=== PATIENT | female | born 1950 | race Caucasian/White ===

== ENCOUNTER 2017-07-05 15:04 | Inpatient (IN) | payer OTHER ==
[~2017-07-05] VITALS: Ht 167.6 cm; Wt 98.0 kg
[2017-07-05] MEDS ORDERED: POLYMYXIN 500,000/BACIT.10,000 UNITS in NS IRR 1 L IR ONE (15:52)
[2017-07-05] MEDS ORDERED: CEFAZOLIN SOD 2 GM in D5W 50 ML IV ONE (16:15)
[2017-07-05] MEDS ORDERED: MIDAZOLAM HCL 5 MG/5 ML VIAL IVP ONE (17:00)
[2017-07-05] MEDS ORDERED: BUPIVACAINE /DEX PF 0.75% SPINAL 2 ML AMP INJ ONE (17:00)
[2017-07-05] MEDS ORDERED: LR 1,000 ML IV.SOLN IV ONE (17:00)
[2017-07-05] MEDS ORDERED: ROPIVACAINE HCL/PF 5 MG/ML 0.5% 30 ML VIAL INJ ONE (17:00)
[2017-07-05] MEDS ORDERED: ROPIVACAINE 0.2% 100 ML INJ SCH (17:49)
[2017-07-05] MEDS ORDERED: NALBUPHINE HCL 10 MG/ML AMP IVP PRN ×2 (18:00)
[2017-07-05] MEDS ORDERED: fentaNYL CITRATE/PF 100 MCG/2 ML AMP IVP PRN ×2 (18:00)
[2017-07-05] MEDS ORDERED: KETOROLAC TROMETHAMINE 60 MG/2 ML VIAL IM PRN (18:00)
[2017-07-05] MEDS ORDERED: OXYCODONE/ACETAMINOPHEN *10*mg/325 mg TABLET PO PRN (18:00)
[2017-07-05] MEDS ORDERED: DIPHENHYDRAMINE INJ 50 MG/ML VIAL IVP PRN ×2 (18:00)
[2017-07-05] MEDS ORDERED: NALOXONE HCL 0.4 MG/ML AMP (NARCAN) IVP PRN (18:00)
[2017-07-05] MEDS ORDERED: ONDANSETRON HCL 4 MG/2 ML VIAL IVP PRN ×2 (18:00)
[2017-07-05] MEDS ORDERED: HYDROcodone/ACETAMIN 5-325 MG TAB (NORCO/ VICODIN) PO PRN (19:30)
[2017-07-05] MEDS ORDERED: MORPHINE 2 MG/ML INJ. SYRINGE IVP PRN (19:30)
[2017-07-05] MEDS ORDERED: ROPIVACAINE 0.2% 550 ML INJ SCH (20:15)
[2017-07-05] MEDS ORDERED: MORPHINE 4 MG/ML INJ. SYRINGE IVP PRN (20:23)
[2017-07-05 20:40] VITALS: BP_SYST 143
[2017-07-05] MEDS: ONDANSETRON HCL 4 MG/2 ML VIAL IVP PRN (21:25)
[2017-07-05] MEDS: D5LR 1,000 ML IV SCH (21:26)
[2017-07-05] MEDS ORDERED: CEFAZOLIN 1 GM IVPB PREMIX 100 ML IV ONE (21:35)
[2017-07-05] MEDS: ASPIRIN 81 MG TABLET(ECOTRIN) PO SCH (22:12)
[2017-07-05] MEDS: ceFAZolin SODIUM 1 GM in D5W 50 ML IV SCH (22:13)
[2017-07-05 23:50] VITALS: BP_SYST 151
[2017-07-06] VITALS (7 sets, daily range): BP systolic 105–141
[2017-07-06] MEDS: ONDANSETRON HCL 4 MG/2 ML VIAL IVP PRN (03:57)
[2017-07-06] MEDS: ceFAZolin SODIUM 1 GM in D5W 50 ML IV SCH ×3 (05:07→22:43)
[2017-07-06] MEDS: D5LR 1,000 ML IV SCH ×2 (05:25→09:13)
[2017-07-06] MEDS: ASPIRIN 81 MG TABLET(ECOTRIN) PO SCH ×2 (09:13→22:43)
[2017-07-06] MEDS ORDERED: ALBUTEROL SULFATE 0.083% 2.5 MG/3 ML VIAL.NEB INH PRN (11:30)
[2017-07-06] MEDS ORDERED: IPRATROPIUM BROM 0.5 MG/2.5 ML VIAL.NEB (ATROVENT) INH PRN (11:30)
[2017-07-06] MEDS: NALOXONE HCL 0.4 MG/ML AMP (NARCAN) IVP PRN ×2 (11:48→11:56)
[2017-07-06] MEDS: ALBUTEROL SULFATE 0.083% 2.5 MG/3 ML VIAL.NEB INH SCH ×3 (15:03→23:30)
[2017-07-06] MEDS: IPRATROPIUM BROM 0.5 MG/2.5 ML VIAL.NEB (ATROVENT) INH SCH ×3 (15:03→23:30)
[2017-07-06 16:59] LABS: EOSINOPHILS % (AUTO) 0.2 % (0.0-4.0); HEMOGLOBIN 11.3 g/dL (12.0-16.0); LYMPHOCYTES # (AUTO) 1.8 K/uL (1.0-5.5); RED CELL DISTRIBUTION WIDTH 12.8 % (9.0-15.0)
[2017-07-06 17:02] LABS: BASOPHILS # (AUTO) 0.2 K/uL (0.0-0.2); BASOPHILS % (AUTO) 1.8 % (0.0-2.0); HEMATOCRIT 33.5 % (36-48); LYMPHOCYTES % (AUTO) 16.7 % (20.5-51.5); MEAN CORPUSCULAR HEMOGLOBIN 31 pg (27-31); MEAN CORPUSCULAR HGB CONC 34 % (32-36); MEAN CORPUSCULAR VOLUME 93 fL (79.0-98.0); MONOCYTES # (AUTO) 0.6 K/uL (0.0-1.0); MONOCYTES % (AUTO) 5.9 % (1.7-9.3); NEUTROPHILS # (AUTO) 7.9 K/uL (1.8-7.7); NEUTROPHILS % (AUTO) 75.4 % (40.0-70.0); PLATELET COUNT (AUTO) 278 K/uL (130-430); RED BLOOD CELL COUNT(AUTO) 3.63 MIL/uL (4.2-6.2); WHITE BLOOD COUNT (AUTO) 10.5 K/uL (4.8-10.8)
[2017-07-06 17:17] LABS: POTASSIUM 3.9 mmol/L (3.5-5.1)
[2017-07-06 17:19] LABS: CALCIUM 9.1 mg/dL (8.4-11.0); CREATININE 0.79 mg/dL (0.55-1.30); TOTAL BILIRUBIN 0.4 mg/dL (0.0-1.0)
[2017-07-06 17:20] LABS: ALBUMIN 3.2 g/dL (3.4-4.8)
[2017-07-06] MEDS ORDERED: CEPH-568 PO (18:15)
[2017-07-06] MEDS ORDERED: ASPI81TA2 PO (18:15)
[2017-07-06] MEDS ORDERED: ACETAMINOPHEN 650 MG/20.3 ML UDC PO PRN (20:15)
[2017-07-07 00:48] VITALS: BP_SYST 120
[2017-07-07] MEDS ORDERED: ACETAMINOPHEN 325 MG TABLET PO PRN (03:15)
[2017-07-07] MEDS: IPRATROPIUM BROM 0.5 MG/2.5 ML VIAL.NEB (ATROVENT) INH SCH ×3 (03:30→11:06)
[2017-07-07] MEDS: ALBUTEROL SULFATE 0.083% 2.5 MG/3 ML VIAL.NEB INH SCH ×3 (03:30→11:06)
[2017-07-07] MEDS: ceFAZolin SODIUM 1 GM in D5W 50 ML IV SCH ×2 (05:04→12:02)
[2017-07-07 08:00] VITALS: BP_SYST 120
[2017-07-07] MEDS: ASPIRIN 81 MG TABLET(ECOTRIN) PO SCH (08:43)
[2017-07-07 10:05] VITALS: BP_SYST 134
[2017-07-07 12:09] VITALS: BP_SYST 148
== END 2017-07-07 14:25 | DRG 492 ==
LOC: SDS 15:04 → SMU 20:20 → SDS 07-06 07:53 → SMU 07-06 07:54
PROVIDERS: ADMIT Internal Medicine Hospice and Palliative Medicine; ATTEND Internal Medicine Hospice and Palliative Medicine
PROC: 0QSK04Z Reposition Left Fibula with Internal Fixation Device, Open Approach (ICD-10-PCS; 2017-07-05)
PROC: 0QSH04Z Reposition Left Tibia with Internal Fixation Device, Open Approach (ICD-10-PCS; principal; 2017-07-05 17:00)
DX: S82.852A Displaced trimalleolar fracture of left lower leg, initial encounter for closed fracture (principal); J96.02 Acute respiratory failure with hypercapnia; W19.XXXA Unspecified fall, initial encounter; E66.9 Obesity, unspecified; E78.5 Hyperlipidemia, unspecified; F32.9 Major depressive disorder, single episode, unspecified; S90.522A Blister (nonthermal), left ankle, initial encounter; G47.30 Sleep apnea, unspecified; I10 Essential (primary) hypertension; Z98.1 Arthrodesis status; Z68.34 Body mass index [BMI] 34.0-34.9, adult; Z90.49 Acquired absence of other specified parts of digestive tract; Y93.89 Activity, other specified; Y92.89 Other specified places as the place of occurrence of the external cause; Y99.8 Other external cause status; Z88.2 Allergy status to sulfonamides; T40.605A Adverse effect of unspecified narcotics, initial encounter; Y92.238 Other place in hospital as the place of occurrence of the external cause
CPT/HCPCS: 36415; 36600; 71045; 76001; 80053; 82803-TC; 85025; 93005; 94640; 94760; C1713; C1763; J0690; J2250; J2270; J2310; J2405; J2795; J3490; J7060; J7120